=== PATIENT | female | born 1970 | race Hispanic/Latino ===

== ENCOUNTER 2023-05-01 05:28 | Emergency (ER) | payer OTHER ==
[~2023-05-01] VITALS: Ht 152.4 cm; Wt 99.8 kg
[2023-05-01 05:37] VITALS: BP 143/81; PULSE 128; RESP 16; TEMP 98.5; O2SAT 93
[2023-05-01] MEDS ORDERED: ZOFRAN ONE (05:48)
[2023-05-01] MEDS ORDERED: NS 1000ML 1,000 ML ONE (05:48)
[2023-05-01] MEDS: NS 1000ML 1,000 ML IV ONE (05:55)
[2023-05-01] MEDS: ZOFRAN IV STA (05:55)
[2023-05-01 06:01] LABS: BASOPHIL % 0.2 % (0.0-0.2); EOSINOPHIL # 0.1 10^3/uL (0.0-0.2); EOSINOPHIL % 0.6 % (0.0-5.0); HEMATOCRIT(ML) 47.8 % (36.0-46.0); LYMPHOCYTES # 1.04 10^3/uL1 (1.0-4.8); LYMPHOCYTES % 6.3 % (24.0-44.0); MEAN CORP HGB 30.9 pg (26-34); MEAN CORP HGB CONCENTRATION 33.5 g/dL (33-36.5); MEAN CORP VOLUME 92.5 fL (78-100); MONOCYTES # 0.4 10^3/uL (0.3-0.8); MONOCYTES % 2.2 % (5.0-12.0); NEUTROPHILS % 90.5 % (41.0-85.0); PLATELET COUNT 384 10^3/uL (150-400); RED BLOOD CELL 5.17 10^6/uL (4.00-5.20); RED CELL DISTRIBUTION WIDTH 12.7 % (11.5-14.5); WHITE BLOOD CELL 16.6 10^3/uL (4.5-11.0)
[2023-05-01 06:12] LABS: +ADD MANUAL DIFF(NO CHRG) NO
[2023-05-01 06:13] VITALS: BP 124/70; PULSE 111; RESP 16; TEMP 98.5; O2SAT 93
[2023-05-01 06:13] LABS: ALBUMIN/GLOBULIN RATIO 0.888; ANION GAP 19.5; BUN/CREATININE RATIO 17.34 (10.0-20.0); CALCIUM 9.7 mg/dL (8.4-10.5); CARBON DIOXIDE 23.5 mmol/L (20.0-32); CREATININE SERUM 0.98 mg/dL (0.59-1.40); EST GFR, NON-AA 59.8 (>/=60)
[2023-05-01 06:29] LABS: BILIRUBIN,URINE NEGATIVE (NEGATIVE); LEUKOCYTE ESTERASE ,URINE NEGATIVE (NEGATIVE); NITRATE,URINE NEGATIVE (NEGATIVE); PH,URINE 6.5 (4.5-8.0); UROBILINOGEN,URINE 0.2 E.U./dL (0.2)
[2023-05-01 06:48] LABS: APPEARANCE,URINE CLOUDY; UA COLOR YELLOW
[2023-05-01] MEDS ORDERED: IMODIUM ONE (06:55)
[2023-05-01] MEDS: IMODIUM PO STA (06:58)
[2023-05-01 07:00] VITALS: BP 115/68; PULSE 101; RESP 16; O2SAT 96
== END 2023-05-01 07:07 | disposition home or self-care (01) ==
LOC: ER 05:28
DX: A08.4 Viral intestinal infection, unspecified (principal); E86.0 Dehydration; Z91.041 Radiographic dye allergy status
CPT/HCPCS: 99283; 96374; 87086; 80053; 85025; 36415; 81001; J7030; J2405; 83630